=== PATIENT | female | born 1950 | race Caucasian/White ===

== ENCOUNTER 2024-05-24 19:53 | Emergency (ER) | payer OTHER ==
[~2024-05-24] VITALS: Ht 149.9 cm; Wt 47.7 kg
[~2024-05-24 19:53] MED LIST: ALEN70TA65 PO; BUPR-514 PO; PARO10TA89 PO
[2024-05-24 20:10] VITALS: BP 141/68; PULSE 71; RESP 20; TEMP 97.8; O2SAT 95
[2024-05-24] MEDS ORDERED: CYAN500T77 PO (20:10)
[2024-05-24] MEDS ORDERED: THIA100T80 PO (20:10)
[2024-05-24] MEDS ORDERED: OLAN5TAB52 PO (20:10)
[2024-05-24] MEDS ORDERED: MAGN400T57 PO (20:10)
[2024-05-24] MEDS ORDERED: BUPR-433 PO (20:10)
[2024-05-24] MEDS ORDERED: QUET100T PO (20:10)
[2024-05-24] MEDS ORDERED: ATOR40TA28 PO (20:10)
[2024-05-24] MEDS ORDERED: HYDR-4527 PO (20:10)
[2024-05-24] MEDS ORDERED: MULT-1203 PO (20:10)
[2024-05-24] MEDS ORDERED: LEVO25TA9 PO (20:10)
[2024-05-24] MEDS ORDERED: NICO-703 TD (20:10)
[2024-05-24] MEDS ORDERED: FOLI-130 PO (20:10)
[2024-05-24] MEDS ORDERED: PARO25TA22 PO (20:10)
[2024-05-24] MEDS ORDERED: BISA10SU11 PR (20:10)
[2024-05-24 22:03] LABS: APPEARANCE,URINE HAZY (CLEAR); BILIRUBIN,URINE NEGATIVE (NEGATIVE); COLOR,URINE LIGHT YELLOW (YELLOW); GLUCOSE, URINE (UA) NEGATIVE (NEGATIVE); KETONES,URINE NEGATIVE (NEGATIVE); LEUKOCYTE ESTERASE ,URINE LARGE (NEGATIVE); NITRATE,URINE POSITIVE (NEGATIVE); OCCULT BLOOD,URINE NEGATIVE (NEGATIVE); PH,URINE 7.5 (5.0-8.0); PROTEIN,URINE NEGATIVE (NEGATIVE); SPECIFIC GRAVITIY, URINE 1.009 (1.003-1.030); UROBILINOGEN,URINE <=1.0 mg/dL (<=1.0)
[2024-05-24 22:12] LABS: BACTERIA,URINE Many /HPF (None Seen); RBC,URINE None Seen /HPF (0-2); SQUAMOUS EPITHELIAL CELL,UR Rare /LPF (None Seen); WBC,URINE 26-50 /HPF (0-5)
[2024-05-24 22:19] LABS: BASOPHILS % (AUTO) 0.4 % (0.0-2.0); EOSINOPHILS % (AUTO) 1.9 % (1.0-6.0); HEMATOCRIT 33.2 % (36-46); HEMOGLOBIN 10.7 g/dL (12.0-16.0); LYMPHOCYTES # (AUTO) 1.7 K/uL (1.0-4.8); LYMPHOCYTES % (AUTO) 27.5 % (22.0-44.0); MEAN CORPUSCULAR HEMOGLOBIN 26.6 pg (26.0-34.0); MEAN CORPUSCULAR HGB CONC 32.1 G/dL (31.0-37.0); MEAN CORPUSCULAR VOLUME 83 fL (80-100); MONOCYTES # (AUTO) 0.6 K/uL (0.1-1.0); MONOCYTES % (AUTO) 10.1 % (2.0-9.0); NEUTROPHILS # (AUTO) 3.8 K/uL (1.8-7.7); NEUTROPHILS % (AUTO) 60.1 % (40.0-70.0); PLATELET COUNT (AUTO) 231 K/uL (150-450); RED BLOOD CELL COUNT(AUTO) 4.01 MIL/uL (4.00-5.20); RED CELL DISTRIBUTION WIDTH 14.5 % (11.5-14.5); WHITE BLOOD COUNT (AUTO) 6.3 K/uL (4.5-11.0)
[2024-05-24 22:28] LABS: ANION GAP 5 mmol/L (8-16); CALCIUM, TOTAL 9.1 mg/dL (8.8-10.5); CARBON DIOXIDE 35 mmol/L (22-29); CHLORIDE 107 mmol/L (98-107); GLOMERULAR FILTR. RATE CALC > 60 mL/min (>60); GLUCOSE,RANDOM 100 mg/dL (70-110); POTASSIUM 3.8 mmol/L (3.5-5.1); SODIUM SERUM 147 mmol/L (136-145); UREA NITROGEN, BLOOD 16 mg/dL (7-18)
[2024-05-24] MEDS ORDERED: CEPH-558 PO (23:02)
[2024-05-24] MEDS: CEPHALEXIN MONOHYDRATE 500 MG CAPSULE PO ONE (23:14)
== END 2024-05-25 06:12 | disposition home or self-care (01) ==
LOC: EMS 19:53
DX: N39.0 Urinary tract infection, site not specified (principal); E03.9 Hypothyroidism, unspecified; F32.A Depression, unspecified; E78.00 Pure hypercholesterolemia, unspecified; Z88.1 Allergy status to other antibiotic agents; Z79.899 Other long term (current) drug therapy
CPT/HCPCS: 80048; 81001; 85025; 87077; 87086; 87186; 99283

== ENCOUNTER 2024-06-01 12:31 | Inpatient (IN) | payer MEDICARE, OTHER ==
[~2024-06-01] VITALS: Ht 154.9 cm; Wt 44.9 kg
[~2024-06-01 12:31] MED LIST changes: -ALEN70TA65 PO; +ATOR40TA28 PO; +BISA10SU11 PR; +BUPR-433 PO; -BUPR-514 PO; +CEPH-558 PO; +CYAN500T77 PO; +FOLI-130 PO; +HYDR-4527 PO; +LEVO25TA9 PO; +MAGN400T57 PO; +MULT-1203 PO; +NICO-703 TD; +OLAN5TAB52 PO; -PARO10TA89 PO; +PARO25TA22 PO; +QUET100T PO; +THIA100T80 PO
[2024-06-01 15:29] LABS: BASOPHILS % (AUTO) 0.3 % (0.0-2.0); EOSINOPHILS % (AUTO) 2.4 % (1.0-6.0); HEMATOCRIT 33.3 % (36-46); HEMOGLOBIN 10.8 g/dL (12.0-16.0); LYMPHOCYTES # (AUTO) 2.2 K/uL (1.0-4.8); LYMPHOCYTES % (AUTO) 27.2 % (22.0-44.0); MEAN CORPUSCULAR HEMOGLOBIN 26.3 pg (26.0-34.0); MEAN CORPUSCULAR HGB CONC 32.5 G/dL (31.0-37.0); MEAN CORPUSCULAR VOLUME 81 fL (80-100); MONOCYTES # (AUTO) 0.7 K/uL (0.1-1.0); MONOCYTES % (AUTO) 9.1 % (2.0-9.0); NEUTROPHILS # (AUTO) 4.9 K/uL (1.8-7.7); PLATELET COUNT (AUTO) 272 K/uL (150-450); WHITE BLOOD COUNT (AUTO) 8.1 K/uL (4.5-11.0)
[2024-06-01 15:29] LABS: COVID AG,FIA SOURCE NASAL SWAB
[2024-06-01 15:45] LABS: ALCOHOL, BLOOD (SERUM) < 3 mg/dL (0-10)
[2024-06-01 15:51] LABS: SARS-COV2 (COVID) ANTIGEN,FIA Negative (Negative)
[2024-06-01 15:58] LABS: ANION GAP 11 mmol/L (8-16); CARBON DIOXIDE 29 mmol/L (22-29); CHLORIDE 102 mmol/L (98-107); CREATININE 0.82 mg/dL (0.60-1.30); GLOMERULAR FILTR. RATE CALC > 60 mL/min (>60); GLUCOSE,RANDOM 90 mg/dL (70-110); POTASSIUM 3.9 mmol/L (3.5-5.1); SODIUM SERUM 142 mmol/L (136-145); UREA NITROGEN, BLOOD 17 mg/dL (7-18)
[2024-06-01] MEDS: OLANZapine 10 MG TABLET PO ONE (16:39)
[2024-06-01] MEDS: LORazepam 1 MG TABLET PO ONE (16:39)
[2024-06-01 17:27] VITALS: O2SAT 98
[2024-06-01 18:53] LABS: APPEARANCE,URINE CLEAR (CLEAR); BILIRUBIN,URINE NEGATIVE (NEGATIVE); COLOR,URINE YELLOW (YELLOW); GLUCOSE, URINE (UA) NEGATIVE (NEGATIVE); KETONES,URINE TRACE mg/dL (NEGATIVE); LEUKOCYTE ESTERASE ,URINE MODERATE (NEGATIVE); NITRATE,URINE POSITIVE (NEGATIVE); OCCULT BLOOD,URINE NEGATIVE (NEGATIVE); PROTEIN,URINE TRACE mg/dL (NEGATIVE); SPECIFIC GRAVITIY, URINE 1.019 (1.003-1.030); UROBILINOGEN,URINE <=1.0 mg/dL (<=1.0)
[2024-06-01 18:59] LABS: ALCOHOL, URINE DRUG SCREEN NEGATIVE (NEGATIVE); AMPHET/METH SCREEN,URINE NEGATIVE (NEGATIVE); BARBITURATE SCREEN, URINE NEGATIVE (NEGATIVE); BENZODIAZEPINES SCREEN,URINE NEGATIVE (NEGATIVE); CANNABINOID SCREEN,URINE NEGATIVE (NEGATIVE); COCAINE SCREEN,URINE NEGATIVE (NEGATIVE); METHADONE SCREEN, URINE NEGATIVE (NEGATIVE); OPIATE SCREEN,URINE NEGATIVE (NEGATIVE); PHENCYCLIDINE SCREEN,URINE NEGATIVE (NEGATIVE)
[2024-06-01 19:06] LABS: RBC,URINE 0-2 /HPF (0-2)
[2024-06-01 19:07] LABS: BACTERIA,URINE Many /HPF (None Seen); SQUAMOUS EPITHELIAL CELL,UR Few /LPF (None Seen)
[2024-06-01 22:14] VITALS: BP 130/57; PULSE 74; RESP 16; TEMP 97; O2SAT 96
[2024-06-02] MEDS: INFLUENZA VIRUS VACCINE TVS (6MO+) 2024-25/PF 45 MCG/0.5 ML SYRINGE IM. ONE (03:41)
[2024-06-02 08:25] VITALS: BP 118/60; PULSE 80; RESP 16; TEMP 97.9; O2SAT 98
[2024-06-02 08:56] LABS: BASOPHILS % (AUTO) 0.6 % (0.0-2.0); EOSINOPHILS % (AUTO) 3.7 % (1.0-6.0); HEMATOCRIT 33.2 % (36-46); HEMOGLOBIN 10.6 g/dL (12.0-16.0); LYMPHOCYTES # (AUTO) 1.7 K/uL (1.0-4.8); LYMPHOCYTES % (AUTO) 26.6 % (22.0-44.0); MEAN CORPUSCULAR HEMOGLOBIN 26.2 pg (26.0-34.0); MEAN CORPUSCULAR HGB CONC 32.1 G/dL (31.0-37.0); MEAN CORPUSCULAR VOLUME 82 fL (80-100); MONOCYTES # (AUTO) 0.7 K/uL (0.1-1.0); MONOCYTES % (AUTO) 10.8 % (2.0-9.0); NEUTROPHILS # (AUTO) 3.6 K/uL (1.8-7.7); NEUTROPHILS % (AUTO) 58.3 % (40.0-70.0); PLATELET COUNT (AUTO) 254 K/uL (150-450); RED BLOOD CELL COUNT(AUTO) 4.06 MIL/uL (4.00-5.20); RED CELL DISTRIBUTION WIDTH 14.3 % (11.5-14.5); WHITE BLOOD COUNT (AUTO) 6.2 K/uL (4.5-11.0)
[2024-06-02 09:01] LABS: HEMOGLOBIN A1C 5.5 % (3.8-5.6)
[2024-06-02 09:19] LABS: ALANINE AMINOTRANSFERASE 24 U/L (12-78); ALBUMIN 3.1 g/dL (3.4-5.0); ALKALINE PHOSPHATASE 134 U/L (46-116); ANION GAP 8 mmol/L (8-16); ASPARTATE AMINOTRANSFERASE 35 U/L (15-37); BILIRUBIN,TOTAL 0.6 mg/dL (0.1-1.0); CALCIUM, TOTAL 9.1 mg/dL (8.8-10.5); CARBON DIOXIDE 30 mmol/L (22-29); CHLORIDE 105 mmol/L (98-107); CHOLESTEROL 120 mg/dL (131-200); CREATININE 0.77 mg/dL (0.60-1.30); GLOMERULAR FILTR. RATE CALC > 60 mL/min (>60); GLUCOSE,RANDOM 87 mg/dL (70-110); HDL CHOLESTEROL 59 mg/dL (40-60); LDL CHOL (CALC.) 45 mg/dL (0-130); POTASSIUM 4.2 mmol/L (3.5-5.1); SODIUM SERUM 143 mmol/L (136-145); THYROID STIMULATING HORMONE 3.18 uIU/mL (0.36-3.74); TOTAL PROTEIN, SERUM 7.1 g/dL (6.4-8.2); TRIGLYCERIDES 78 mg/dL (15-150); UREA NITROGEN, BLOOD 16 mg/dL (7-18)
[2024-06-02] MEDS: FOLIC ACID 1 MG TABLET PO SCH (10:26)
[2024-06-02] MEDS: MAGNESIUM OXIDE 400 MG TABLET PO SCH (10:26)
[2024-06-02] MEDS: ATORVASTATIN CALCIUM 20 MG TABLET PO SCH (10:26)
[2024-06-02] MEDS: MULTIVITAMINS WITH MINERALS, THERAPEUTIC TABLET PO SCH (10:27)
[2024-06-02] MEDS: THIAMINE 100 MG TABLET PO SCH (10:27)
[2024-06-02] MEDS: NICOTINE 14 MG/24 HOUR PATCH TD SCH (10:27)
[2024-06-02] MEDS: HALOPERIDOL 5 MG TABLET PO PRN (13:04)
[2024-06-02 15:34] VITALS: BP 124/78; RESP 16; O2SAT 99
[2024-06-02] MEDS: LORazepam 2 MG TABLET PO PRN (15:42)
[2024-06-02] MEDS: CIPROFLOXACIN HCL 500 MG TABLET PO SCH (17:03)
[2024-06-02] MEDS: BuPROPion HCL 150 MG SR TABLET PO SCH (17:03)
[2024-06-02 20:00] VITALS: BP_SYST 111; BP_SYST 124; BP_DIAS 60; BP_DIAS 78; PULSE 60; PULSE 93; RESP 15; RESP 16; TEMP 98.4; O2SAT 95; O2SAT 99
[2024-06-02] MEDS: OLANZapine 5 MG TABLET PO SCH (20:01)
[2024-06-02] MEDS: QUEtiapine FUMARATE 100 MG TABLET PO SCH (20:01)
[2024-06-03] MEDS: LEVOTHYROXINE SODIUM 25 MCG TABLET PO SCH (06:02)
[2024-06-03 08:41] VITALS: BP 123/60; PULSE 77; RESP 18; TEMP 97; O2SAT 98
[2024-06-03] MEDS: PAROXETINE HCL 12.5 MG PO SCH (09:00)
[2024-06-03] MEDS: ETHYL ALCOHOL 62% ANTISEPTIC NASAL SANITIZER 0.6 ML AMPUL NASAL ONE (14:26)
[2024-06-03] MEDS: NYSTATIN 30 GM CREAM TP SCH (16:07)
[2024-06-03 20:17] VITALS: BP 98/57; PULSE 80; RESP 17; TEMP 97.8; O2SAT 97
[2024-06-03] MEDS: CHLORHEXIDINE GLUCONATE 2% TOWELETTE [2'S/6'S] TP SCH (21:38)
[2024-06-03] MEDS: ETHYL ALCOHOL 62% ANTISEPTIC NASAL SANITIZER 0.6 ML AMPUL NASAL SCH (21:38)
[2024-06-04 08:42] VITALS: BP 103/61; PULSE 90; RESP 16; TEMP 98; O2SAT 96
[2024-06-04 09:49] LABS: FREE T4 (FREE THYROXINE) 0.97 ng/dL (0.76-1.46); THYROID STIMULATING HORMONE 5.27 uIU/mL (0.36-3.74)
[2024-06-04] MEDS: IBUPROFEN 600 MG TABLET PO PRN (11:44)
[2024-06-04 20:15] VITALS: BP 117/53; PULSE 92; RESP 18; TEMP 98.1; O2SAT 97
[2024-06-04] MEDS: ZOLPIDEM TARTRATE 10 MG TABLET PO PRN (22:09)
[2024-06-05 08:14] VITALS: BP 139/78; PULSE 95; RESP 17; TEMP 97.9; O2SAT 99
[2024-06-06 08:25] VITALS: BP 100/60; PULSE 79; RESP 17; TEMP 98.3; O2SAT 95
[2024-06-06 20:19] VITALS: BP 127/67; PULSE 86; RESP 19; TEMP 98.1; O2SAT 98
[2024-06-07 21:53] VITALS: BP 125/70; PULSE 71; RESP 19; TEMP 97.4; O2SAT 98
[2024-06-08 08:06] VITALS: BP 107/58; PULSE 84; RESP 18; TEMP 97.6; O2SAT 98
[2024-06-08 20:00] VITALS: RESP 18
[2024-06-08] MEDS: HALOPERIDOL LACTATE 5 MG/ML VIAL IM ONE (21:29)
[2024-06-08] MEDS: DiphenhydrAMINE HCL 50 MG/ML VIAL IM ONE (21:29)
[2024-06-09 16:13] VITALS: BP 123/62; PULSE 84; RESP 18; TEMP 97.3; O2SAT 97
[2024-06-09 20:55] VITALS: BP 105/64; PULSE 86; RESP 18; TEMP 97.6; O2SAT 96
[2024-06-10 08:36] VITALS: BP 100/60; PULSE 90; RESP 18; TEMP 97.9; O2SAT 95
[2024-06-10 08:45] VITALS: RESP 19; O2SAT 96
[2024-06-10 09:45] VITALS: RESP 18; O2SAT 97
[2024-06-10 21:33] VITALS: TEMP 98.6
[2024-06-11 08:15] VITALS: RESP 17
[2024-06-11] MEDS ORDERED: [UNRECOGNIZED DRUG - CODE] PO (09:07)
[2024-06-11] MEDS ORDERED: NYST30CR9 TP (09:29)
[2024-06-11] MEDS ORDERED: CHLO3800 TP (09:30)
[2024-06-11] MEDS ORDERED: LORA2TAB18 PO (15:44)
[2024-06-11] MEDS ORDERED: LORA2I PO (15:45)
[2024-06-11 20:09] VITALS: BP 101/59; PULSE 89; RESP 18; TEMP 98.1; O2SAT 95
== END 2024-06-11 22:13 | disposition home or self-care (01) | DRG 885 ==
LOC: EMS 13:04 → B2S 21:46 → B2X 06-03 18:54
PROVIDERS: ADMIT Psychiatry & Neurology Child & Adolescent Psychiatry; ATTEND Psychiatry & Neurology Child & Adolescent Psychiatry
PROC: GZ56ZZZ Individual Psychotherapy, Supportive (ICD-10-PCS; principal; 2024-06-02)
PROC: GZHZZZZ Group Psychotherapy (ICD-10-PCS; 2024-06-02)
DX: F25.1 Schizoaffective disorder, depressive type (principal); F03.92 Unspecified dementia, unspecified severity, with psychotic disturbance; N39.0 Urinary tract infection, site not specified; Z20.822 Contact with and (suspected) exposure to COVID-19; E03.9 Hypothyroidism, unspecified; G51.0 Bell's palsy; E05.90 Thyrotoxicosis, unspecified without thyrotoxic crisis or storm; E78.00 Pure hypercholesterolemia, unspecified; Z87.891 Personal history of nicotine dependence; Z91.148 Patient's other noncompliance with medication regimen for other reason
CPT/HCPCS: 80048; 80053; 80061; 80307; 81001; 82306; 82607; 83036; 84439; 84443; 85025; 87077; 87081; 87086; 87186; 99285; G0480; J1200; J1630